=== PATIENT | male | born 1980 | race Caucasian/White ===

== ENCOUNTER 2023-06-22 14:51 | Outpatient (CLI) | payer BC | END 2023-06-22 14:52 | disposition home or self-care (01) | LOC: BICRAD 14:51 | PROVIDERS: ATTEND Internal Medicine Rheumatology | DX: M46.1 Sacroiliitis, not elsewhere classified (principal); M47.812 Spondylosis without myelopathy or radiculopathy, cervical region; Z98.890 Other specified postprocedural states | CPT/HCPCS: 72052; 72202 ==